=== PATIENT | male | born 1995 | race Caucasian/White ===

== ENCOUNTER 2018-11-09 22:15 | Observation (INO) ==
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
[2018-11-10] MEDS ORDERED: Ondansetron ODT 4 MG TAB.RAPDIS SL ONE (00:13)
[2018-11-10] MEDS ORDERED: Naloxone 0.4 MG/ML INJ IVP PRN ×3 (02:08→13:20)
[2018-11-10] MEDS ORDERED: *HR* HYDROcodone/Acet 5/325 mg TABLET PO PRN ×3 (02:08→13:20)
[2018-11-10] MEDS ORDERED: *HR* OxyCODONE Immed Rel 5 MG TABLET PO PRN ×2 (02:08→13:20)
[2018-11-10] MEDS ORDERED: Acetaminophen 325 MG TABLET PO PRN ×3 (02:08→13:20)
[2018-11-10] MEDS ORDERED: Ringers Solution, Lactated 1,000 ML IVC SCH ×3 (02:15→13:20)
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
[2018-11-10 02:43] LABS: Basophils % 0.2 %; Eosinophils % 0.1 %; Hemoglobin 14.6 g/dL (12.9-16.9); Immature Granulocytes % 0.3 % (0-4); Lymphocytes # 1.9 K/mcL (0.6-4.6); Mean Corpuscular HGB Conc 33.2 g/dL (31.6-35.5); Mean Corpuscular Hemoglobin 29.6 pg (28.0-33.3); Mean Corpuscular Volume 89.1 fL (83.0-100.0); Mean Platelet Volume 10.5 fL (9.4-12.4); Monocytes # 0.8 K/mcL (0.0-1.3); Monocytes % 5.3 %; Neutrophils # 12.7 K/mcL (1.6-8.9); Platelet Count 217 K/mcL (140-400); Red Blood Count 4.94 M/mcL (4.19-5.50); Red Cell Distribution Width 12.1 % (11.5-14.5); Segmented Neutrophils % 82.1 %; White Blood Count 15.5 K/mcL (4.3-11.1)
[2018-11-10 03:02] LABS: BUN/Creatinine Ratio 22 (6-26); Blood Urea Nitrogen 22 mg/dL (6-20); Calcium 9.5 mg/dL (8.6-10.3); Carbon Dioxide 27 mEq/L (23-29); Chloride 103 mEq/L (98-107); Glucose 101 mg/dL (70-105); Osmolality,Calculated 287 (280-300); Sodium 137 mEq/L (136-145); eGFR For African Americans > 60 (> 60); eGFR For Non-African Americans > 60 (> 60)
[2018-11-10] MEDS ORDERED: Ondansetron ODT 4 MG TAB.RAPDIS SL PRN ×2 (03:11→13:20)
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
[2018-11-10] MEDS: *HR* OxyCODONE Immed Rel 5 MG TABLET PO PRN ×2 (08:57→12:35)
--- NOTE | 2018-11-10 09:30 | Anesthesia Evaluation PreOp ---
Date of Encounter: 11/10/18 Time of Encounter: 09:28 - Past History Planned Operation: ORIF R distal radius Cardiac History: Denies any Significant Hx Pulmonary History: Denies Any Significant HX BRINE PURIFIER History: Denies Any Significant HX Other Medical History: Denies Any Significant HX Anesthesia History: No Prior Anesthetic Complications, Past Anesthesia (oral surgery) Alcohol Use: rarely Drug use: none Medications and Allergies Allergy/AdvReac Type Severity Reaction Status Date / Time No Known Allergies Allergy Verified 11/10/18 04:31 - Meds/Allergy Pre-op Review Medications Reviewed: Yes Allergies Reviewed: Yes Beta Blockers on Current Med List: No Anesthesia Results - Labs 11/10/18 02:32 11/10/18 02:32 Impressions Forearm X-Ray 11/10/18 00:52 IMPRESSION: 1. Acute comminuted fracture the right radial distal diaphysis with displacement and angulation. 2. Acute mildly displaced comminuted fracture of the right ulnar styloid process. D/ / Morro Rosales MD / Morro Rosales MD Interpreting Provider: Morro Rosales MD Wrist X-Ray 11/10/18 00:52 IMPRESSION: 1. Acute comminuted fracture the right radial distal diaphysis with displacement and angulation. 2. Acute mildly displaced comminuted fracture of the right ulnar styloid process. D/ / Morro Rosales MD / Morro Rosales MD Interpreting Provider: Morro Rosales MD Pelvis X-Ray 11/10/18 00:58 IMPRESSION: No gross fracture. D/ / John Maxwell MD / John Maxwell MD Interpreting Provider: John Maxwell MD Laboratory Results 11/10/18 11/10/18 02:32 02:32 WBC 15.5 H RBC 4.94 Hgb 14.6 Hct 44.0 MCV 89.1 MCH 29.6 MCHC 33.2 RDW 12.1 Plt Count 217 MPV 10.5 Immature Gran % 0.3 Seg Neutrophils % 82.1 Lymphocytes % 12.0 Monocytes % 5.3 Eosinophils % 0.1 Basophils % 0.2 Neutrophils # 12.7 H Lymphocytes # 1.9 Monocytes # 0.8 Eosinophils # 0.0 Basophils # 0.0 Sodium 137 Potassium 4.0 Chloride 103 Carbon Dioxide 27 BUN 22 H Creatinine 0.98 Est GFR ( Amer) > 60 Est GFR (Non-Af Amer) > 60 BUN/Creatinine Ratio 22 Glucose 101 Calculated Osmolality 287 Calcium 9.5 Anesthesia Exam Vital Signs Temp Pulse Resp BP Pulse Ox 11/10/18 07:44 97.9 F 51 15 120/79 98 11/10/18 03:31 98.4 F 69 18 113/73 98 11/10/18 02:47 65 15 115/57 97 11/10/18 00:26 89 16 112/59 97 11/09/18 22:21 98.1 F 61 16 124/66 100 Intake and Output 11/09/18 11/10/18 11/10/18 23:59 07:59 15:59 Intake Total 0 / 0 Balance 0 / 0 Intake: Oral 0 / 0 Other: Weight 70.307 kg Height: 5'9" Weight: 155# BMI = 23 NPO (# of Hours): [place] - HEENT Pupil (Motor): Pupils equal, EOMI Mallampati: II Teeth: Normal Oral Opening: Greater than 3 - BRINE PURIFIER LOC: Oriented BRINE PURIFIER Motor: Normal RUE, Normal LUE, Normal RLE, Normal LLE, Normal Face BRINE PURIFIER Sensory: Normal: RUE, LUE, RLE, LLE, Face - Cardiac Rhythm: Regular Murmur: None - Pulmonary Breath Sounds: bilateral Clear Respiratory Effort: Symmetrical Anesthesia Assess/Plan ASA Score: 1 Level of consciousness: Cooperative, Oriented, Tranquil Anesthetic Plan: General Monitoring Plan: Standard Monitors Recovery Plan: PACU Anes Supervising Prov Stmt: Pt seen/evaluated, R&B Discussed, questions answered and consent obtained. Bebe Ybarra MD
[2018-11-10] MEDS ORDERED: Pregabalin 75 MG CAPSULE ONE (10:09)
[2018-11-10] MEDS ORDERED: traMADol 50 MG TABLET ONE (10:09)
[2018-11-10] MEDS ORDERED: Famotidine 20 MG/2 ML VIAL ONE (10:10)
[2018-11-10] MEDS ORDERED: Acetaminophen IV 1,000 MG/100 ML INFUS..BTL ONE (10:10)
[2018-11-10] MEDS ORDERED: *HR* HYDROMORPHONE 2 MG/ML VIAL ONE (10:20)
[2018-11-10] MEDS ORDERED: *HR* Propofol 200 MG/20 ML VIAL IVP ONE (10:20)
[2018-11-10] MEDS ORDERED: *HR* Midazolam HCl 2 MG/2 ML VIAL ONE (10:21)
[2018-11-10] MEDS ORDERED: *HR* Rocuronium Bromide 50 MG/5 ML VIAL ONE (10:22)
[2018-11-10] MEDS ORDERED: Bupivacaine/EPI 1:200k 0.5%PF 10 ML VIAL ONE (10:22)
[2018-11-10] MEDS ORDERED: Lidocaine -MPF 2% 2 ML VIAL ONE (10:22)
[2018-11-10] MEDS ORDERED: Lidocaine HCL 4 ML Topical Solution (Laryng-O-Jet Kit Sterile Pak) TP ONE (10:23)
[2018-11-10] MEDS ORDERED: *HR* Magnesium Sulfate 1 GM/2 ML VIAL ONE (10:31)
[2018-11-10] MEDS ORDERED: Dexamethasone 4 MG/ML VIAL ONE (10:45)
[2018-11-10] MEDS ORDERED: Ondansetron 4 MG/2 ML VIAL ONE (10:45)
[2018-11-10] MEDS ORDERED: ceFAZolin 2,000 MG in Water for inj. (sterile) 20 ML IVP ONE (12:16)
--- NOTE | 2018-11-10 12:41 | Discharge Summary ---
Outpatient Proc Discharge Plan - Plan Additional Instructions: DISCHARGE INSTRUCTIONS Dr. Medina DISCHARGE DIAGNOSIS/PROCEDURE Open reduction and internal fixation of the right radius ACTIVITY: Avoid aggressive activities with arm in which you were operated. Okay to move your fingers which will be good exercise. WOUND CARE: Keep the dressing clean, dry, and intact. Do not take dressing off or get wet or dirty. DRIVING: Do not drive while taking narcotic pain medications. DIET: Begin with clear liquids, and then increase your diet as you feel comfortable. MEDICATIONS: FOLLOW-UP Follow-up with Dr. Medina or Sonya Read PA-C at the office 2 weeks from the surgery date for a post operative evaluation. Call the office at [phone] to schedule or confirm your appointment. WHEN TO CALL THE DOCTOR OR WHEN TO SEEK CARE BEFORE YOUR APPOINTMENT 1. Excess swelling or increased numbness not made better by elevating the hand and moving the fingers. 2. Uncontrolled pain. 3. A color change in your hand or fingers. 4. Worsening redness or drainage. 5. Fevers over 100.5 degrees F or 38.1 degrees C. 6. Any symptoms that bring concern to you. Prescriptions: OxyCODONE/APAP 5/325 [Percocet 5/325 MG] 1 each PO Q6HR PRN 7 Days #28 tablet PRN Reason: Pain Prescription Printed Home Medications: OxyCODONE/APAP 5/325 [Percocet 5/325 MG] 1 each PO Q6HR PRN 7 Days #28 tablet 11/10/18 [Rx]
--- NOTE | 2018-11-10 13:12 | Orthopedic Operative Note ---
Date of procedure: 11/10/18 Procedure: OPERATIVE REPORT SURGEON: Fred Medina MD PREOPERATIVE DIAGNOSIS: Right forearm Galeazzi fracture POSTOPERATIVE DIAGNOSIS: Same PROCEDURE: Open reduction and internal fixation of the right radius ANESTHESIA: Gen. anesthesia IMPLANTS: Synthes 3.5 mm LC-DCP plate PREOPERATIVE NOTE The surgical plan was reviewed with the patient. The risks, benefits, alternatives, and potential complications of this procedure were discussed with the patient including injury to veins, arteries, nerves, tendons, ligaments, and bone. Also discussed were the risks of infection, bleeding, pain, blood clots, the possible need for a blood transfusion, the possible need for further procedures, heart attack, stroke, and . Additional risks include leg DRUJ instability. All of this was explained in simple terms, and the patient verbalized understanding and wished to proceed. Consent was given to proceed with surgery. PROCEDURE: The patient was seen in the preoperative holding area where the identify and the consent were confirmed. The right forearm was marked. Final questions were answered. The patient was brought back to the operating room and placed supine on the operating room table. A huddle was performed with the patient and all vital surgical team members confirming patient identity, the correct procedure, and the correct operative site. Gen. anesthesia was administered. The operative extremity was prepped and draped in the usual sterile fashion. A surgical time out was performed immediately preceding the incision with all personnel in the operating room to confirm patient identity, the correct operative site and extremity, correct radiographic studies, availability of appropriate surgical equipment, and agreement on the planned procedure. The limb was exsanguinated and the tourniquet was inflated. A volar longitudinal incision was made per the approach of Sage. This was centered over the fracture site. Dissection proceeded carefully through the skin and the subcutaneous tissue. Discrete bleeders were electrocauterized. The interval between the flexor carpi radialis and brachioradialis was developed by opening the fascia between. This did expose the radial artery which was retracted ulnarly. Several muscular branches needed to be taken down in order to fully retract the radial artery. The pronator quadratus was taken down distally and reflected ulnarly. The FPL was reflected ulnarly. The FDS was taken down from the radial border of the radius and reflected ulnarly. This did expose the fracture quite nicely. There is a tiny comminuted fragment. The main fracture fragments were reduced and clamped and a 2.7 mm lag screw was placed with excellent purchase. A 3.5 mm neutralization plate was placed on the bone and fixed proximally and distally with excellent purchase of the screws. After fixing the radius, the forearm was taken through a full range of pronation and supination and the DRUJ felt very stable and congruent with the contralateral side. Therefore no further work on the TFCC or ulnar styloid was performed. The wound was copiously irrigated and the skin was closed with interrupted 4-0 nylon stitches. A soft, sterile dressing was applied followed by sugar tong splint with the wrist in supination. The instrument, sponge, and needle counts were correct after wound closure. POST OPERATIVE PLAN: 2 weeks for stitch removal and likely placement in a Aubrey brace. Was there an fitter's assistant present: No Estimated blood loss (cc): 1
--- NOTE | 2018-11-10 13:30 | Anesthesia Evaluation Post Op ---
Date of Encounter: 11/10/18 Time of Encounter: 12:55 - Vital Signs Vital Signs: Vital Signs/O2 Sat/Glucose, Most Current Temp Pulse Resp BP Pulse Ox 11/10/18 12:41 97.9 F 56 16 122/72 97 11/10/18 12:31 60 16 126/79 94 11/10/18 12:21 74 16 122/76 95 11/10/18 12:11 97.1 F L 64 16 122/72 99 - Lungs Lungs: Clear Ascult./Percussion - Airway Airway: Non-obstructed - Cardiovascular Regular Rate, New Rhythm - Mental Status Mental Status: Alert & Oriented, Answers Appropriately - Pain Pain Scale used: Numeric (1 - 10) - Nausea Vomiting Nausea Vomiting: Not Present - Hydration Hydration: Tolerates oral liquids, Able to void - Discharge PostOp Status: Discharge Patient to home Anes Supervising Prov Stmt: Pt seen/evaluated, VSS and has met criteria for discharge to floor. -MD Tate
[2018-11-10 13:45] VITALS: BP 130/72
[2018-11-10] MEDS ORDERED: ceFAZolin 2,000 MG in Water for inj. (sterile) 20 ML IVP SCH (20:00)
--- NOTE | 2018-11-19 07:15 | Discharge Summary ---
Date of Encounter: 11/19/18 Time of Encounter: 07:13 - Discharge Diagnosis (1) Fracture of right forearm Priority: Primary Status: Acute Qualifiers: Encounter type: initial encounter Fracture type: closed Qualified Code(s): S52.91XA - Unspecified fracture of right forearm, initial encounter for closed fracture - Hospital Course Hospital course: Mr. Argueta is a 23 year old male who is admitted to the hospital for surgical fixation of his right sided radial shaft fracture after an injury. He underwent open reduction and internal fixation the next morning after being admitted. The patient did receive adequate pain control during his stay and later in the day after surgery he was stable for discharge as his pain was well-controlled. He was subsequently discharged with instructions to follow-up in 2 weeks for his first postoperative visit. - Time Spent with Patient Total time spent providing and/or coordinating discharge services: - Discharge Medications Prescriptions: New OxyCODONE/APAP 5/325 [Percocet 5/325 MG] 1 each PO Q6HR PRN 7 Days #28 tablet PRN Reason: Pain Home Medications: OxyCODONE/APAP 5/325 [Percocet 5/325 MG] 1 each PO Q6HR PRN 7 Days #28 tablet 11/10/18 [Rx] Allergies/Adverse Reactions: Allergy/AdvReac Type Severity Reaction Status Date / Time No Known Allergies Allergy Verified 11/10/18 17:17 Date of admission: 11/10/18 02:24 Primary care physician: Ananya Mc MD - Impressions ITS Impressions Forearm X-Ray 11/10/18 00:52 IMPRESSION: 1. Acute comminuted fracture the right radial distal diaphysis with displacement and angulation. 2. Acute mildly displaced comminuted fracture of the right ulnar styloid process. D/ / Morro Rosales MD / Morro Rosales MD Interpreting Provider: Morro Rosales MD Wrist X-Ray 11/10/18 00:52 IMPRESSION: 1. Acute comminuted fracture the right radial distal diaphysis with displacement and angulation. 2. Acute mildly displaced comminuted fracture of the right ulnar styloid process. D/ / Morro Rosales MD / Morro Rosales MD Interpreting Provider: Morro Rosales MD Pelvis X-Ray 11/10/18 00:58 IMPRESSION: No gross fracture. D/ / John Maxwell MD / John Maxwell MD Interpreting Provider: John Maxwell MD Forearm X-Ray 11/10/18 12:40 IMPRESSION: Anatomic alignment status post ORIF of the distal radius D/ / Morro Clements MD / Morro Clements MD Interpreting Provider: Morro Clements MD Fluoroscopy 11/10/18 13:38 IMPRESSION: Intraoperative fluoroscopy facilitating ORIF of fracture of right distal radius as described above. D/ / 11/10/2018 13:46:27 Adam Esquivel MD / scot Interpreting Provider: Adam Esquivel MD - Patient Status Disposition: Home Health Service Condition: Good - Discharge Instructions Follow Up With: Ananya Mc MD [Primary Care Provider] - Additional Instructions: DISCHARGE INSTRUCTIONS Dr. Medina DISCHARGE DIAGNOSIS/PROCEDURE Open reduction and internal fixation of the right radius ACTIVITY: Avoid aggressive activities with arm in which you were operated. Okay to move your fingers which will be good exercise. WOUND CARE: Keep the dressing clean, dry, and intact. Do not take dressing off or get wet or dirty. DRIVING: Do not drive while taking narcotic pain medications. DIET: Begin with clear liquids, and then increase your diet as you feel comfortable. MEDICATIONS: FOLLOW-UP Follow-up with Dr. Medina or Sonya Read PA-C at the office 2 weeks from the surgery date for a post operative evaluation. Call the office at [phone] to schedule or confirm your appointment. WHEN TO CALL THE DOCTOR OR WHEN TO SEEK CARE BEFORE YOUR APPOINTMENT 1. Excess swelling or increased numbness not made better by elevating the hand and moving the fingers. 2. Uncontrolled pain. 3. A color change in your hand or fingers. 4. Worsening redness or drainage. 5. Fevers over 100.5 degrees F or 38.1 degrees C. 6. Any symptoms that bring concern to you.
== END 2018-11-10 18:20 | disposition home health service (06) ==
LOC: 3NENU 22:15 → EMEROOARM 22:15 → 3NENU 11-10 03:03
PROVIDERS: ADMIT Orthopaedic Surgery Hand Surgery; ATTEND Orthopaedic Surgery Hand Surgery